=== PATIENT | female | born 1935 | race Caucasian/White ===

== ENCOUNTER 2016-03-18 00:01 | Inpatient (IN) | payer OTHER, MEDICARE ==
[~2016-03-18] VITALS: Ht 157.5 cm; Wt 74.4 kg
[~2016-03-18 00:01] MED LIST: ANTIVERT 25 MG25 MG PO; ASPIR 8181 MG PO; BUFFERIN LOW DO81 MG PO; CALCIUM 600600 M1 PO; CARVEDILOL12.5 MG PO; COREG 25 MG TAB25 MG PO; COZAAR 25MG TAB25 MG PO; ECOTRIN81 MG PO; FUROSEMIDE20 M1 PO; JANUVIA 50MG50 MG PO; KLOR-CON M1010 ME1 PO; LISINOPRIL20 MG PO; LOPRESSOR 25MG25 MG PO; MAGNESIUM OXID400 MG PO; METFORMIN HCL500 M3 PO; MIRALAX17 GM PO; NEURONTIN100 MG PO; PRINIVIL 5MG5 MG PO; PRINIVIL10 MG PO; SENNA-TIME S 501 TAB PO; TESSALON PERLE100 MG PO; Transderm Nitro 10MG (0.4 MG/Hr) Patch TOP; XANAX 0.25MG0.25 MG PO; ZOCOR 40MG TAB40 MG PO; ZOFRAN ODT4 MG SL
--- NOTE | 2016-03-18 00:08 | ED CARDIAC/CP/PALPITATIONS ---
History of Present Illness General Chief Complaint: Chest Pain Stated Complaint: BIBA C/O CP Source: patient Exam Limitations: no limitations Vital Signs & Intake/Output Vital Signs & Intake/Output Vital Signs Date Time Temp Pulse Resp B/P Pulse O2 O2 Flow FiO2 Ox Delivery Rate 03/18 0249 97.1 73 18 122/68 100 Room Air 03/18 0132 70 16 158/78 98 Room Air 03/18 0030 68 16 176/80 99 Room Air 03/18 0026 81 18 201/88 03/18 0010 99 Room Air Room Air 03/18 0010 97.4 68 16 190/72 99 Room Air Allergies Coded Allergies: erythromycin base (Mild, RASH 03/18/16) Sulfa (Sulfonamide Antibiotics) (RASH 05/01/15) clopidogrel (From PLAVIX) (03/18/16) ciprofloxacin (From CIPRO) (SEVERE DIARRHEA 05/01/15) codeine (GI DISTRESS 05/01/15) meperidine (GI UPSET 05/01/15) Reconcile Medications Alprazolam (Xanax 0.25MG Tab) 0.25 MG TAB 0.25 MG PO TID PRN pain attacks Aspirin (Children's Aspirin) 81 MG TAB 2 TAB PO DAILY HEART Benzonatate (Tessalon Perle) 100 MG SGL 100 MG PO TID PRN COUGH Calcium Carbonate (Calcium 600) (Unknown Strength) TAB (Unknown Dose) PO DAILY SUPPLEMENT (Reported) Furosemide 20 MG TABLET 1 TAB PO DAILY FLUID (Reported) Gabapentin (Neurontin) 100 MG CAP 100 MG PO Q8 PRN ANXIETY Losartan (Cozaar) 25 MG TAB 25 MG PO DAILY HTN Magnesium Oxide (Unknown Strength) TAB (Unknown Dose) PO DAILY SUPPLEMENT ( Reported) Metformin Hydrochloride (Metformin HCl) 500 MG TAB 2 TAB PO BID DIABETES ( Reported) Metoprolol Tartrate (Lopressor) 25 MG TAB 0.5 TAB PO BID HEART (Reported) Polyethylene Glycol 3350 (Miralax) 17 GM PWD 17 GM PO DAILY STOOL SOFTENER mix with water, juice, soda, coffee or tea Potassium Chloride 10 MEQ CER 1 CAP PO DAILY SUPPLEMENT (Reported) SENNOSIDES/DOCUSATE SODIUM (Senna-Time S Tablet) 50 MG/8.6 MG TAB 1 TAB PO DAILY STOOL SOFTENER Simvastatin (Zocor 40MG Tab) 40 MG TABLET 1 TAB PO DAILY CHOLESTEROL ( Reported) Sitagliptin Phosphate (Januvia) 50 MG TAB 1 TAB PO DAILY DIABETES (Reported) [Transderm Nitro 10MG (0.4 MG/Hr) Patch] 0.4 MG TOP DAILY HEART USE DAILY FOR 12 HRS ONLY Triage Nurses Notes Reviewed? yes Onset: Gradual Duration: hour(s): Timing: recent history Nitro Today/Relief: 0.4 mg x 2, provided by EMS, mild relief Aspirin Today: 325 mg x 1, provided by EMS Associated Symptoms: chest pressure HPI: 81-year-old woman with a history of coronary artery disease and diabetes, status post CABG in 2013, presents with 6-7 out of 10 substernal chest pressure that began at approximately 8 PM. She called 911. She received nitroglycerin 2 as well as aspirin 324. Upon arrival to the emergency department, she states that her pain is a 4 out of 10. The pain does not radiate. It is not reproducible. She has no dizziness or shortness of breath or syncopal type symptoms. She is otherwise well. Past History Medical History Any Pertinent Medical History? 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 No Review of Systems Review of Systems Constitutional: Reports: no symptoms. EENTM: Reports: no symptoms. Respiratory: Reports: no symptoms. Cardiovascular: Reports: no symptoms. GI: Reports: no symptoms. Genitourinary: Reports: no symptoms. Musculoskeletal: Reports: no symptoms. Skin: Reports: no symptoms. Neurological/Psychological: Reports: no symptoms. Hematologic/Endocrine: Reports: no symptoms. Immunologic/Allergic: Reports: no symptoms. All Other Systems: Reviewed and Negative Physical Exam Physical Exam General Appearance: well developed/nourished, no apparent distress Head: atraumatic, normal appearance Eyes: Bilateral: normal appearance. Ears, Nose, Throat: normal pharynx, normal ENT inspection Neck: normal inspection, supple, full range of motion Respiratory: normal breath sounds, chest non-tender, no respiratory distress, quiet respiration, lungs clear Cardiovascular: regular rate/rhythm Gastrointestinal: normal bowel sounds, soft, non-tender, no organomegaly Back: normal inspection Extremities: normal inspection, normal capillary refill Neurologic/Psych: no motor/sensory deficits, awake, alert, oriented x 3 Skin: intact, normal color, warm/dry Core Measures ACS in differential dx? No Severe Sepsis Present: No Septic Shock Present: No Progress Differential Diagnosis: AMI, unstable angina Plan of Care: Orders Procedure Date/time Status Nothing by Mouth 03/18 B Active TROPONIN LEVEL 03/18 1200 Active EKG 03/18 1200 Active TROPONIN LEVEL 03/18 0600 Active EKG 03/18 0600 Active Pathway - chart 03/18 0402 Active House Staff 03/18 0402 Active Code Status 03/18 0402 Active Pathway - chart 03/18 0356 Active Intake & Output 03/18 0328 Active Patient Data 03/18 0306 Active Saline Lock 03/18 0232 Active Misc Message 03/18 0232 Active ED Holding Orders 03/18 0232 Active Vital Signs 03/18 0232 Active Code Status 03/18 0232 Complete ED Holding Orders 03/18 0231 Active Admit to inpatient 03/18 0231 Active TROPONIN LEVEL 03/18 0012 Complete PARTIAL THROMBOPLASTIN TIME 03/18 0012 Complete PROTHROMBIN TIME 03/18 0012 Complete COMPREHENSIVE METABOLIC PANEL 03/18 0012 Complete CBC WITHOUT DIFFERENTIAL 03/18 0012 Complete B-TYPE NATRIURETIC PEP (BNP) 03/18 0012 Complete EKG 03/18 0005 Active VTE Mechanical Prophylaxis 03/18 UNK Active ECHOCARDIOGRAM 03/18 UNK Active Current Medications Sig/Dalia Start time Last Medication Dose Stop Time Status Admin Aspirin 162 MG DAILY 03/18 1000 UNVr (Aspirin) Atorvastatin Calcium 40 MG DAILY 03/18 1000 UNVr (Lipitor) Calcium 600 MG DAILY 03/18 1000 UNVr (Calcium Carbonate 600 MG Tab) Furosemide 20 MG DAILY 03/18 1000 UNVr (Lasix) Losartan Potassium 25 MG DAILY 03/18 1000 UNVr (Cozaar) Metoprolol Tartrate 12.5 MG BID 03/18 1000 UNVr (Lopressor) Polyethylene Glycol 17 GM DAILY 03/18 1000 UNVr (Miralax) Gabapentin 100 MG Q8 03/18 06 UNVr (Neurontin) Heparin Sodium 5,000 UNIT Q8 03/18 06 UNVr (Porcine) Acetaminophen 650 MG Q6P PRN 03/18 399 UNVr (Tylenol) Alprazolam 0.25 MG TID PRN 03/18 399 UNVr (Xanax) 03/25 035 Morphine Sulfate 1 MG Q6P PRN 03/18 399 UNVr (Morphine) Nitroglycerin 0.4 MG Q 5 MINUTES X 3 DO.. 03/18 399 UNVr (Nitrostat) Laboratory Tests 03/18/16 0025: Anion Gap 12, Estimated GFR > 60, BUN/Creatinine Ratio 23.3, Glucose 137 H, Calcium 9.5, Total Bilirubin 0.6, AST 22, ALT 24, Alkaline Phosphatase 99, Troponin I < 0.01, Nrn-O-Pkesdbbwyfg Pept 366 H, Total Protein 6.9, Albumin 4.0 , Globulin 2.9, Albumin/Globulin Ratio 1.4, PT 11.0, INR 1.05, APTT 30, CBC w Diff NO MAN DIFF REQ, RBC 3.88 L, MCV 91.6, MCH 31.2 H, RDW 13.4, MPV 9.4, Gran % 61.5, Lymphocytes % 25.8, Monocytes % 10.5 H, Eosinophils % 1.7, Basophils % 0.5, Absolute Granulocytes 4.1, Absolute Lymphocytes 1.7, Absolute Monocytes 0.7 H, Absolute Eosinophils 0.1, Absolute Basophils 0, PUBS MCHC 34.1 Diagnostic Imaging: Viewed by Me: Radiology Read. Discussed w/RAD: Radiology Read. CXR Impression: no acute abnormality, no infiltrates, normal size heart, normal mediastinum Initial ED EKG: LBBB, NO ACUTE CHANGES Comments: PATIENT: RENEE BANDA PRESENT AGE: 81 PATIENT ACCOUNT NO: [id number] : 37 LOCATION: [facility] ORDERING PHYSICIAN: DAQUAN WELLS MD SERVICE DATE: 03/18/16 EXAM TYPE: RAD - XRY-PORTABLE CHEST XRAY EXAMINATION: XR PORTABLE CHEST CLINICAL INFORMATION: Chest pain COMPARISON: Multiple priors, most recently chest CT from 09/05/2015. TECHNIQUE: Portable AP view of the chest was obtained. FINDINGS: Median sternotomy wires appear intact. The lungs are well expanded. There is no focal consolidation, edema, or effusion. No pneumothorax. The cardiomediastinal silhouette is within normal limits. No acute osseous abnormality. IMPRESSION: No acute pulmonary findings. DICTATED BY: RENZO GLASER MD DATE/TIME DICTATED:03/18/16149 COMMUNITY DEVELOPMENT PLANNER:RAFI DATE/TIME TRANSCRIBED:03/18/16149 CONFIDENTIAL, DO NOT COPY WITHOUT APPROPRIATE AUTHORIZATION. <Electronically signed in Other Vendor System> SIGNED BY: RENZO GLASER MD 03/18 Departure Departure Disposition: STILL A PATIENT Condition: Stable Clinical Impression Primary Impression: Unstable angina Secondary Impressions: Hypertensive urgency Referrals: JARON MENDEZ MD Departure Forms: Customer Survey General Discharge Information Admission Note Spoke With: ANALISA BANERJEE PhD,JACQUELINE Prince Documentation of Exam: Documentation of any treatments & extenuating circumstances including Concerns Regarding Discharge (functional status, medication knowledge or non-compliance, living conditions, etc.) that warrant an admission rather than observation: Patient with significant cardiac history presenting with signs and symptoms were consistent with unstable angina. She also had hypertensive urgency requiring IV labetalol and topical nitrates. She merits admission to telemetry for medical optimization, monitoring for cardiac dysrhythmia, and evaluation by cardiology. Critical Care Note Critical Care Note Critical Care Time: 30-74 min Comments: Patient had equal blood pressures in both arms. She was given 20 of labetalol IV 1. As well as nitro paste 2 inches. Her blood pressure decreased to systolic of 158. Her chest pain was completely resolved.
[2016-03-18 00:36] LABS: ABSOLUTE BASOPHIL COUNT 0 /CUMM (0.0-0.2); ABSOLUTE EOSINOPHIL COUNT 0.1 /CUMM (0.0-0.7); ABSOLUTE GRANULOCYTE CT 4.1 /CUMM (1.4-6.5); ABSOLUTE LYMPH COUNT 1.7 /CUMM (1.2-3.4); ABSOLUTE MONOCYTE COUNT 0.7 /CUMM (0.10-0.60); BASOPHIL % 0.5 % (0.0-2.0); EOSINOPHIL % 1.7 % (0-5); GRANULOCYTE % 61.5 % (42.2-75.2); HEMATOCRIT 35.5 % (37-47); MEAN CORPUSCULAR HGB 31.2 PG (27.0-31.0); MEAN CORPUSCULAR HGB CONC 34.1 G/DL (33.0-37.0); MEAN CORPUSCULAR VOLUME 91.6 FL (81.0-99.0); MEAN PLATELET VOLUME 9.4 FL (7.4-10.4); PLATELET COUNT 171 /CUMM (130-400); RBC DISTRIBUTION WIDTH 13.4 % (11.5-14.5); RED BLOOD CELL CT 3.88 /CUMM (4.20-5.40); WHITE BLOOD CELL COUNT 6.7 /CUMM (4.8-10.8)
[2016-03-18 00:47] LABS: PTT 30 SEC (25-37)
--- NOTE | 2016-03-18 01:55 | RADIOLOGY REPORT ---
EXAMINATION: XR PORTABLE CHEST CLINICAL INFORMATION: Chest pain COMPARISON: Multiple priors, most recently chest CT from 09/05/2015. TECHNIQUE: Portable AP view of the chest was obtained. FINDINGS: Median sternotomy wires appear intact. The lungs are well expanded. There is no focal consolidation, edema, or effusion. No pneumothorax. The cardiomediastinal silhouette is within normal limits. No acute osseous abnormality. IMPRESSION: No acute pulmonary findings.
--- NOTE | 2016-03-18 02:28 | History & Physical ---
KENIA BANERJEE,[facility] 03/18/16 0228: General Information and HPI MD Statement: I have seen and personally examined RENEE BANDA and documented this H &P. The patient is a 81 year old F who presented with a patient stated chief complaint of Chest Pain Source of Information: patient, family, old records Exam Limitations: no limitations History of Present Illness: Patient is a 81-year-old lady with PMH of DM, CABG, CAD, status post stent placement (prior to 2011), hypertension, hyperlipidemia, myocardial infarction presented to the hospital with chest pain. Patient states that she recently visited her customs brokerage manager last week Dr. Hui who recommended that following episodes of chest tightness and pressure which have been occuring over the last few months, the that patient be started on nitroglycerin patch (.4mg Q12 hr). Patient states that over the last few months she has had transient episodes of chest tightness. Earlier on this evening on 03/17/2016, after the patient was done bringing groceries into her house she began to experience chest pain and discomfort. Patient states that pain was rated at an 8-9 out of 10. This pain was described as a "dull" and "heavy pain which radiated to her left shoulder and subsequently to her back. Patient states that this pain felt different compared to previous. She states that this episode of chest pain was coupled with prolonged eructation. She did not take any pain medications however given the prolonged duration of this episode decided to call the ambulance and come to the emergency department. She denies any fever, chills, nausea, vomiting. Allergies/Medications Allergies: Coded Allergies: erythromycin base (Mild, RASH 03/18/16) Sulfa (Sulfonamide Antibiotics) (RASH 05/01/15) clopidogrel (From PLAVIX) (03/18/16) ciprofloxacin (From CIPRO) (SEVERE DIARRHEA 05/01/15) codeine (GI DISTRESS 05/01/15) meperidine (GI UPSET 05/01/15) Compliance With Home Meds: GOOD Past History Travel History Traveled to [place] past 21 day No Medical History Neurological: NONE EENT: NONE Cardiovascular: CAD, CHF, hypertension, hyperlipidemia, myocardial infarction, PVD, CABG carotid disease Respiratory: NONE Gastrointestinal: NONE Hepatic: NONE Renal: UTI Musculoskeletal: NONE Psychiatric: NONE Endocrine: DM Blood Disorders: NONE Cancer(s): 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 Home Who Do You Live With? self Services at Home: None Primary Language: Serbian Smoking Status: Former Smoker ETOH Use: occasional use Functional Ability ADLs Independent: dressing, eating, toileting, bathing. Ambulation: independent IADLs Independent: shopping, housework, finances, food prep, telephone, transportation , medication admin. Review of Systems Review of Systems Constitutional: Denies: chills, diaphoresis, fever, malaise, weakness. Cardiovascular: Reports: chest pain. Denies: orthopena, palpitations, peripheral edema. Respiratory: Reports: cough. Denies: hemoptysis, orthopnea, short of breath, sputum production. GI: Reports: see HPI. Denies: abdominal pain, bloating, constipation, diarrhea, distention, bowel incontinence. Genitourinary: Denies: discharge, dysuria, frequency, hematuria. Musculoskeletal: Denies: back pain, gout, joint pain, joint swelling. Skin: Denies: cysts, change in skin color, change in hair/nails, dryness, erythema. Neurological/Psychological: Denies: ataxia, cognitive dysfunction, confusion. Exam & Diagnostic Data Last 24 Hrs of Vital Signs/I&O Vital Signs Date Time Temp Pulse Resp B/P Pulse O2 O2 Flow FiO2 Ox Delivery Rate 03/18 0249 97.1 73 18 122/68 100 Room Air 03/18 0132 70 16 158/78 98 Room Air 03/18 0030 68 16 176/80 99 Room Air 03/18 0026 81 18 201/88 03/18 0010 99 Room Air Room Air 03/18 0010 97.4 68 16 190/72 99 Room Air Intake & Output 03/18 0800 03/18 0000 03/17 1600 Intake Total Output Total Balance Patient 72.575 kg Weight Physical Exam General Appearance Alert, Oriented X3, Cooperative, No Acute Distress Lymphatic Axillary nl Cardiovascular Normal S1, Normal S2, Occasional Skipped Beats Lungs Clear to Auscultation Abdomen Normal Bowel Sounds, Soft, No Tenderness Neurological Strength at 5/5 X4 Ext Extremities No Edema, Normal Pulses Last 24 Hrs of Labs/Yunior: Laboratory Tests 03/18/16 0025: Anion Gap 12, Estimated GFR > 60, BUN/Creatinine Ratio 23.3, Glucose 137 H, Calcium 9.5, Total Bilirubin 0.6, AST 22, ALT 24, Alkaline Phosphatase 99, Troponin I < 0.01, Jut-T-Mbezscsjxou Pept 366 H, Total Protein 6.9, Albumin 4.0 , Globulin 2.9, Albumin/Globulin Ratio 1.4, PT 11.0, INR 1.05, APTT 30, CBC w Diff NO MAN DIFF REQ, RBC 3.88 L, MCV 91.6, MCH 31.2 H, RDW 13.4, MPV 9.4, Gran % 61.5, Lymphocytes % 25.8, Monocytes % 10.5 H, Eosinophils % 1.7, Basophils % 0.5, Absolute Granulocytes 4.1, Absolute Lymphocytes 1.7, Absolute Monocytes 0.7 H, Absolute Eosinophils 0.1, Absolute Basophils 0, PUBS MCHC 34.1 Diagnostic Data EKG Results Sinus Rhythm Rate 66 QTC 474 CXR Results PATIENT: RENEE BANDA PRESENT AGE: 81 PATIENT ACCOUNT NO: [id number] : 37 LOCATION: [facility] ORDERING PHYSICIAN: DAQUAN WELLS MD SERVICE DATE: 03/18/16 EXAM TYPE: RAD - XRY-PORTABLE CHEST XRAY EXAMINATION: XR PORTABLE CHEST CLINICAL INFORMATION: Chest pain COMPARISON: Multiple priors, most recently chest CT from 09/05/2015. TECHNIQUE: Portable AP view of the chest was obtained. FINDINGS: Median sternotomy wires appear intact. The lungs are well expanded. There is no focal consolidation, edema, or effusion. No pneumothorax. The cardiomediastinal silhouette is within normal limits. No acute osseous abnormality. IMPRESSION: No acute pulmonary findings. DICTATED BY: RENZO GLASER MD DATE/TIME DICTATED:03/18/16149 WIRE BORDER ASSEMBLER:RAFI DATE/TIME TRANSCRIBED:03/18/16149 CONFIDENTIAL, DO NOT COPY WITHOUT APPROPRIATE AUTHORIZATION. <Electronically signed in Other Vendor System> SIGNED BY: RENZO GLASER MD 03/18 Assessment/Plan Assessment: Patient is a 81-year-old lady with PMH of DM, CABG, CAD status post stent placement, hypertension, hyperlipidemia, myocardial infarction who presented to the hospital with chest pain. #Chest pain Likely due to worsening stable angina vs musculoskeletal. Rule out acute coronary syndrome with serial troponins and EKG. 6 AM and 12 PM on 03/18/2016. Initial set of troponins were unremarkable. Echocardiogram to assess ejection fraction and cardiac function. Cardiology consult in a.m. Continue daily aspirin 81 mg. Nitroglycerin paste .4 mg/hr every 12 hours. #Coronary artery disease with a history of CHF Lasix 20 mg daily. No signs of decompensation. Continue beta debby Monitor ins and outs. Daily weights Continue ARB, if pressures remain elevated, can consider increasing dose. Full lipid panel Continue statin therapy. Continue aspirin #History of diabetes Begin patient on sliding scale. Hemoglobin A1c for long-term glycemic control. If sugars remain uncontrolled consider endocrinology consult. #Diet Consistent carbohydrate #DVT prophylaxis Heparin 5000 every 8 #Code DNR/DNI As Ranked By This Provider Problem List: 1. Hypertension 2. Hyperlipidemia 3. Diabetes 4. Unstable angina Core Measures/Miscellaneous Acute Coronary Syndrome ACS Diagnosis: No Cerebrovascular Accident CVA/TIA Diagnosis: No Congestive Heart Failure CHF Diagnosis: No Venous Thromboembolism VTE Risk Factors: Age > 40 VTE Prophylaxis [facility] Inpt: [facility] prophylaxis d/t: No contraindications No VTE Pharm Prophylaxis d/t: No contraindications VTE Diagnosis: No VTE Type: NONE VTE Confirmed by (Test): NONE Severe Sepsis Severe Sepsis Present: No Septic Shock Septic Shock Present: No Miscellaneous Documentation Attending Case Discussed With: Dr Hui Primary Care Physician: UNKNOWN Patient sees these Specialists NA Level of Patient Care: Telemetry CASSI ROGEL 03/18/16 0241: General Information and HPI Allergies/Medications Home Med list Alprazolam (Xanax 0.25MG Tab) 0.25 MG TAB 0.25 MG PO TID PRN pain attacks Aspirin (Children's Aspirin) 81 MG TAB 2 TAB PO DAILY HEART Benzonatate (Tessalon Perle) 100 MG SGL 100 MG PO TID PRN COUGH Calcium Carbonate (Calcium 600) (Unknown Strength) TAB (Unknown Dose) PO DAILY SUPPLEMENT (Reported) Furosemide 20 MG TABLET 1 TAB PO DAILY FLUID (Reported) Gabapentin (Neurontin) 100 MG CAP 100 MG PO Q8 PRN ANXIETY Losartan (Cozaar) 25 MG TAB 25 MG PO DAILY HTN Magnesium Oxide (Unknown Strength) TAB (Unknown Dose) PO DAILY SUPPLEMENT ( Reported) Metformin Hydrochloride (Metformin HCl) 500 MG TAB 2 TAB PO BID DIABETES ( Reported) Metoprolol Tartrate (Lopressor) 25 MG TAB 0.5 TAB PO BID HEART (Reported) Polyethylene Glycol 3350 (Miralax) 17 GM PWD 17 GM PO DAILY STOOL SOFTENER mix with water, juice, soda, coffee or tea Potassium Chloride 10 MEQ CER 1 CAP PO DAILY SUPPLEMENT (Reported) SENNOSIDES/DOCUSATE SODIUM (Senna-Time S Tablet) 50 MG/8.6 MG TAB 1 TAB PO DAILY STOOL SOFTENER Simvastatin (Zocor 40MG Tab) 40 MG TABLET 1 TAB PO DAILY CHOLESTEROL ( Reported) Sitagliptin Phosphate (Januvia) 50 MG TAB 1 TAB PO DAILY DIABETES (Reported) [Transderm Nitro 10MG (0.4 MG/Hr) Patch] 0.4 MG TOP DAILY HEART USE DAILY FOR 12 HRS ONLY Resident Review Statement Resident Statement: examined this patient, discussed with data analysis intern, agreed with data analysis intern, discussed with family, reviewed EMR data (avail), discussed with nursing , discussed with case mgmt, reviewed images, amended to note Other Findings: 80 years old woman presented at the emergency room reporting chest pain. Patient has a past medical history significant for congestive heart failure with reduced ejection fraction of 30-40% and golobal ischemic cardiomyopathy- hypokinesia (documented in echo 2014), severe CAD s/p x4 NE s/p stent placement( x3 in 2009 and 2011) and 5 CABG in 2014. She was admitted at [facility] in December 2015 for Legionella pneumonia and was seen by Dr. Hui by that time. Cardiac catheterization was done in January 2016 which showed complete occlusion of one vessel and nearly occlusion of another one. Patient reports for the past several months she has been experiencing intermittent episodes of chest tightness, midsternal, nonpleuritic nonreproducible, lasting less than 5 minutes, without radiation and resolved by itself. Patient follow-up with Dr. Hui last week and was restarted on nitrate patch 0.4mg q24h. She denies any other cardiac or noncardiac associated symptoms of palpitation, lightheadedness, dizziness, feeling clammy, cold sweats. Yesterday around 5 PM patient experienced a sudden onset, progressive, midsternal chest pain, pain is started as an mild and peaked at 8-9 out of 10 on pain, pain lasted more than 30 minutes. Patient denies any palpitation, lightheadedness, dizziness, feeling clammy and sweaty. She was given nitroglycerin in the ambulance and emergency room that relieved the pain. lives a she is retired lives alone, ambulates and is physically active, she is independent and takes care of herself. Social history: Former heavy smoker 3 packs a day for 20 years quit 39 years ago , does not drink or denies illicit drugs; vital signs: Within normal limits; ROS: Complains of mild retrosternal chest pain. Physical exam: HEET: Within normal limits; CV: Soft2/6 systolic ejection murmur (aortic valve), S1S2, lungs: Prolonged expiration no crackles no wheezing; trace peripheral pedal edema Pertinent Data: Echo form Dec 2014: Normal size left ventricle. Mild concentric left ventricular hypertrophy. Mildly hypokinetic proximal septum and markedly hypokinetic distal septum. Mildly hypokinetic proximal inferior wall and markedly hypokinetic distal inferior wall. Mild global hypokinesis of the other wall segments. Moderately abnormal left ventricular ejection fraction estimated at 30-35%. "pseudonormal" filling pattern of the left ventricle for age (stage 2 diastolic dysfunction) and mild RV elevated pressure. EKG: Sinus rhythm, 66 beats per minutes, old nonspecific STT segment change in septolateral(V2-V4) leads, >120msec QRS with an old left bundle branch block (no change compared to previous EKG) troponin less than 0.01, sodium 138 potassium 4.4 hemoglobin/hematocrit 12.1/ 35.5, platelet 171 Assessment and plan 81-year-old woman with extensive cardiac history was admitted for anginal chest pain. List of differential diagnosis for chest pain: Acid reflux disease, costochondritis, NSTEMI List of problems: HFrEF, diabetes, anxiety, neuropathic pain, hypertension, hyperlipidemia, chronic anemia and history of GI bleeding secondary to antiplatelet therapy, mild thrombocytopenia Plan #1 anginal chest pain -Admit to telemetry -Trend troponin at 6 AM and 12 noon with EKG -Obtain echo in the am -Cardiology consult- Dr. Ez BANERJEE was notified by ED physician -Continue aspirin 81 mg x 2 tab po daily -Nitroglycerin paste 1 inch every 6 -Continue her home medication: Simvastatin, metoprolol #2 congestive heart failure-not in decompensation -Heart healthy diet/diabetic diet -Daily weights -Continue metoprolol -Continue by mouth Lasix daily -Continue losartan #3 coronary artery disease -Continue simvastatin -Continue aspirin 81 mg 2 tabs by mouth daily #4 history of diabetes on metformin and Januvia -Hold oral hypoglycemic agents -Started patient on carbohydrate consistent diet -Insulin sliding scale pre-meals and at bedtime #5 history of chronic anemia and mild thrombocytopenia-stable DVT prophylaxis heparin 5000 units every 8 Mild pain pathway DNR/DNI
[2016-03-18 05:06] VITALS: BP 140/60
[2016-03-18 09:00] VITALS: BP 130/60
--- NOTE | 2016-03-18 11:08 | PN- Housestaff ---
Subjective Follow-up For: Chest pain Subjective: Seen and examined. She lying comfortably in bed in no acute distress. Days of chest pain, palpitation, dizziness complains of cough dry, denies any fever, chills, and no other complaints. Review of Systems Constitutional: Reports: see HPI. Objective Last 24 Hrs of Vital Signs/I&O Vital Signs Date Time Temp Pulse Resp B/P Pulse O2 O2 Flow FiO2 Ox Delivery Rate 03/18 955 97.8 67 16 180/64 03/18 0856 67 180/64 03/18 0800 97.8 67 16 130/60 96 Room Air 03/18 0506 97.9 65 18 140/60 95 Room Air 03/18 0249 97.1 73 18 122/68 100 Room Air 03/18 0132 70 16 158/78 98 Room Air 03/18 0030 68 16 176/80 99 Room Air 03/18 0026 81 18 201/88 03/18 0010 99 Room Air Room Air 03/18 0010 97.4 68 16 190/72 99 Room Air Intake & Output 03/18 1600 03/18 0800 03/18 0000 Intake Total 100 Output Total Balance 100 Intake, Oral 100 Patient 74.389 kg Weight Physical Exam General Appearance: same as documented in HPI Assessment/Plan Assessment: Patient is a 81-year-old lady with PMH of DM, CABG, CAD status post stent placement, hypertension, hyperlipidemia, myocardial infarction presented to the hospital with chest pain. Chest pain Likely due to stable angina Rule out acute coronary syndrome with serial troponin and EKG so far have been negative for any acute findings. Echocardiogram to assess ejection fraction and cardiac function. Cardiology consult in a.m. Continue daily aspirin 81 mg. Nitroglycerin paste 1 inch every 6 hours. Coronary artery disease with a history of CHF Lasix 20 mg daily. Continue beta debby Monitor ins and outs. Daily weights Continue ARB Continue statin therapy. Continue aspirin History of diabetes Begin patient on sliding scale. Hemoglobin A1c for long-term glycemic control. If sugars remain uncontrolled consider endocrinology consult. Diet Insistent carbohydrate DVT prophylaxis Heparin 5000 every 8 Code DNR/DNI Problem List: 1. Chest pain Pain Ratin Pain Location: None Pain Goal: Remain pain free Pain Plan: Mild pain pathway Tomorrow's Labs & Rationales: BEP for LYTES CBC FOR H&h
--- NOTE | 2016-03-18 13:44 | Cons- Cardiology ---
General Information and HPI Consulting Request Date of Consult: 03/18/16 Requested By: ANALISA BANERJEE PhD,JACQUELINE Prince History of Present Illness: Mita is a 81 year old female with history of hypertension, dyslipidemia, coronary artery disease s/p IL with two stents placed prior to 2011 and CABG. Yesterday, Mita noted a moderate precordial chest pressure that radiated to her left shoulder and back. The discomfort began at rest and had an equivocal exertional component to it. It was associated with nausea and eructation but there was no shortness of breath, lightheadedness or palpitations. The discomfort lasted over five hours without any rise in cardiac troponin. There were no new ischemic changes on her ECG. It is noted that this patient is hypertensive. At baseline this patient was doing well although she does note swelling in her feet toward the end of the day. There is no associated shortness of breath or orthopnea. She did stop her statin due to unbearable muscle achiness but she continues to have a discomfort in her fingers bilaterally in a median nerve distribution. Otherwise, at baseline, she is free of chest pain, pressure or tightness, lightheadedness or palpitations. It should be noted that this patient has been very anemic and is now s/p an upper endoscopy and colonoscopy that showed a gastritis and diverticulitis respectively. She feels better on antacid therapy. It should be recalled that Mita's carries a diagnosis of Legionella pneumonia treated with antibiotics, decompensated congestive heart failure and a NSTEMI. Her echocardiogram at that time showed a significant decrease in her EF and she did have positive cardiac enzymes. I did opt to pursue a cardiac catheterization which showed no flow in the distal OM1 and the interpositional segment of the LAD could not be seen. Mita has reported lightheadedness in the past and has fallen multiple times without any true syncope. The patient's echo shows an EF of 30-35% with mild left ventricular hypertrophy. The proximal septum is mildly hypokinetic and the distal septum and distal inferior wall is markedly hypokinetic. There is mild left atrial enllargement. In terms of cardiac valves she has mild mitral stenosis and regurgitation, mild tricuspid regurgitation, mild aortic stenosis, and moderate pulmonary hypertension. This patient has had two prior stents to her RCA and is s/p CABG x 5 done at [facility]. This procedure included a SAGE graft to the LAD with jump graft to the more distal LAD, an SVG to the OM1 and OM2 and an SVG to the RCA. Her recent cardiac catheterization shows a 20% ostial and 50% distal left main. The LAD has a 70% ostial to proximal and 50% long mid stenosis followed by a 70% distal lesion. The D1 and D2 have luminal irregularities. The LCX has diffuse luminal irregularities with a 70% proximal stenosis. The OM1 fills retrograde from the SVG with no flow to its distal segment. This is a small vessel. The OM2 has diffuse luminal irregularities with a 70% stenosis following the anastomosis. TheRCA is 100% occluded at the ostium but the SVG to the RCA is patent with good distal runoff. The SAGE to the LAD is patent but the interpositional segment could not be visualized and is presumed occluded. Distal to the anastomosis of the SAGE is a 70% stenosis. Finally, the SVG to the OM1 and OM2 is patent with no flow into the distal OM1. Her EF is 70% with suspected aortic insufficiency. Allergies/Medications Allergies: Coded Allergies: erythromycin base (Mild, RASH 03/18/16) Sulfa (Sulfonamide Antibiotics) (RASH 05/01/15) clopidogrel (From PLAVIX) (03/18/16) ciprofloxacin (From CIPRO) (SEVERE DIARRHEA 05/01/15) codeine (GI DISTRESS 05/01/15) meperidine (GI UPSET 05/01/15) Home Med List: Alprazolam (Xanax 0.25MG Tab) 0.25 MG TAB 0.25 MG PO TID PRN pain attacks Aspirin (Children's Aspirin) 81 MG TAB 2 TAB PO DAILY HEART Benzonatate (Tessalon Perle) 100 MG SGL 100 MG PO TID PRN COUGH Calcium Carbonate (Calcium 600) (Unknown Strength) TAB (Unknown Dose) PO DAILY SUPPLEMENT (Reported) Furosemide 20 MG TABLET 1 TAB PO DAILY FLUID (Reported) Gabapentin (Neurontin) 100 MG CAP 100 MG PO Q8 PRN ANXIETY Losartan (Cozaar) 25 MG TAB 25 MG PO DAILY HTN Magnesium Oxide (Unknown Strength) TAB (Unknown Dose) PO DAILY SUPPLEMENT ( Reported) Metformin Hydrochloride (Metformin HCl) 500 MG TAB 2 TAB PO BID DIABETES ( Reported) Metoprolol Tartrate (Lopressor) 25 MG TAB 0.5 TAB PO BID HEART (Reported) Polyethylene Glycol 3350 (Miralax) 17 GM PWD 17 GM PO DAILY STOOL SOFTENER mix with water, juice, soda, coffee or tea Potassium Chloride 10 MEQ CER 1 CAP PO DAILY SUPPLEMENT (Reported) SENNOSIDES/DOCUSATE SODIUM (Senna-Time S Tablet) 50 MG/8.6 MG TAB 1 TAB PO DAILY STOOL SOFTENER Simvastatin (Zocor 40MG Tab) 40 MG TABLET 1 TAB PO DAILY CHOLESTEROL ( Reported) Sitagliptin Phosphate (Januvia) 50 MG TAB 1 TAB PO DAILY DIABETES (Reported) [Transderm Nitro 10MG (0.4 MG/Hr) Patch] 0.4 MG TOP DAILY HEART USE DAILY FOR 12 HRS ONLY Review of Systems Review of Systems: A review of systems is remarkable for a cough. Past History Travel History Traveled to [place] past 21 day No Medical History Neurological: NONE EENT: NONE Cardiovascular: hypertension, hyperlipidemia, NSTEMI, PVD, CABG x 5 carotid disease Respiratory: pneumonia Gastrointestinal: NONE Hepatic: NONE Renal: UTI Musculoskeletal: NONE Psychiatric: NONE Endocrine: DM Blood Disorders: NONE Cancer(s): NONE REJECTOR/Reproductive: NONE Surgical History Surgical History: CABG Psychosocial History Where Do You Live? Home Who Do You Live With? self Services at Home: None Primary Language: [place] Smoking Status: Former Smoker ETOH Use: occasional use Functional Ability ADLs Independent: dressing, eating, toileting, bathing. Ambulation: independent IADLs Independent: shopping, housework, finances, food prep, telephone, transportation , medication admin. Exam & Diagnostic Data Vital Signs and I&O Vital Signs Date Time Temp Pulse Resp B/P Pulse O2 O2 Flow FiO2 Ox Delivery Rate 03/18 1559 98.4 66 18 166/60 96 03/18 1125 Room Air 03/18 0956 97.8 67 16 180/64 03/18 0956 67 180/64 03/18 0900 97.8 67 16 130/60 96 Room Air 03/18 0506 97.9 65 18 140/60 95 Room Air 03/18 0249 97.1 73 18 122/68 100 Room Air 03/18 0132 70 16 158/78 98 Room Air 03/18 0030 68 16 176/80 99 Room Air 03/18 0026 81 18 201/88 03/18 0010 99 Room Air Room Air 03/18 0010 97.4 68 16 190/72 99 Room Air Intake & Output 03/18 1600 03/18 0800 03/18 0000 03/17 1600 03/17 0800 03/17 0000 Intake Total 480 100 Output Total Balance 480 100 Intake, Oral 480 100 Patient 164 lb Weight Physical Exam: General: WD/ WN female in NAD; alert and oriented x 3 HEENT: NC/ AT, PERRL, EOMI, clear oropharynx Neck: no JVD, bilateral carotid bruits Heart: RRR with 2/6 systolic murmur at the LLSB and RUSB Lungs: clear bilaterally Abdomen: soft, NT, +ve bowel sounds Extemities: no edema Diagnostic Data EKG Results sinus rhythm with old anterior IL and LAFB Assessment/Plan Assessment/Plan * This patient has chest discomfort that may be musculoskeletal since she has had a recent cough. Nevertheless, her symptoms do go along with ischemia. Fortunately, if she does have ischemia it was not to the point of causing an IL. My recommendation is to pursue a pharmocologic stress test tomorrow to assess for ischemi. We will also obtain an echocardiogram to evaluate her EF. I do not seen any signs of decompensated CHF at this time. If ischemia is noted, we will need to determine if it is do to progression of her coronary artery disease or rather to subendocardial ischemia from severe hypertension. * Continue aspirin, her statin and Lasix. If recurrent chest pain we will begin Plavix and IV heparin. * Continue a NTG patch at 0.4mg/hr for 12 hours daily. Change metoprolol to Coreg 6.25mg BID for better control of her BP. Increase Losartan to 50mg daily. Consult Acknowledgment - Thank you for your consult request.
[2016-03-18 15:59] VITALS: BP 166/60
[2016-03-19 00:08] VITALS: BP 140/60
--- NOTE | 2016-03-19 07:27 | PN- Housestaff ---
Subjective Follow-up For: Chest pain Tele-Events Since Last Visit: Off the monitor Review of Systems Constitutional: Denies: chills, fever. Cardiovascular: Denies: chest pain, palpitations. Respiratory: Denies: cough, short of breath, sputum production. Gastrointestinal: Denies: abdominal pain, constipation, diarrhea, nausea, vomiting. Genitourinary: Denies: dysuria, frequency. Objective Last 24 Hrs of Vital Signs/I&O Vital Signs Date Time Temp Pulse Resp B/P Pulse O2 O2 Flow FiO2 Ox Delivery Rate 03/19 0818 98.2 59 16 155/62 96 Room Air 03/19 0008 98.2 66 20 140/60 94 03/18 2136 66 166/60 03/18 1559 98.4 66 18 166/60 96 03/18 1125 Room Air Intake & Output 03/19 1600 03/19 0800 03/19 0000 Intake Total 100 780 Output Total Balance 100 780 Intake, Oral 100 780 Physical Exam General Appearance: Alert, Oriented X3, Cooperative, No Acute Distress Cardiovascular: Regular Rate, Normal S1, Normal S2, No Murmurs Lungs: Clear to Auscultation, Normal Air Movement Abdomen: Normal Bowel Sounds, Soft, No Tenderness Extremities: No Clubbing, No Cyanosis, No Edema Assessment/Plan Assessment: Patient is a 81-year-old lady with PMH of DM, CABG, CAD status post stent placement, hypertension, hyperlipidemia, myocardial infarction presented to the hospital with chest pain. Chest pain Likely due to stable angina Rule out acute coronary syndrome with serial troponin and EKG so far have been negative for any acute findings. Echocardiogram to assess ejection fraction and cardiac function. Cardiology consult in a.m. Continue daily aspirin 81 mg. Nitroglycerin paste 1 inch every 6 hours. Coronary artery disease with a history of CHF Lasix 20 mg daily. Continue beta debby Monitor ins and outs. Daily weights Continue ARB Continue statin therapy. Continue aspirin History of diabetes Begin patient on sliding scale. Hemoglobin A1c for long-term glycemic control. If sugars remain uncontrolled consider endocrinology consult. Diet Insistent carbohydrate DVT prophylaxis Heparin 5000 every 8 Code DNR/DNI Problem List: 1. Chest pain Pain Ratin Pain Location: None Pain Goal: Remain pain free Pain Plan: Mild pain pathway Nitroglycerin patch Tomorrow's Labs & Rationales: CBC BEP
[2016-03-19 08:12] LABS: ABSOLUTE BASOPHIL COUNT 0 /CUMM (0.0-0.2); ABSOLUTE EOSINOPHIL COUNT 0.1 /CUMM (0.0-0.7); ABSOLUTE GRANULOCYTE CT 3.6 /CUMM (1.4-6.5); ABSOLUTE LYMPH COUNT 1.4 /CUMM (1.2-3.4); ABSOLUTE MONOCYTE COUNT 0.5 /CUMM (0.10-0.60); BASOPHIL % 0.6 % (0.0-2.0); EOSINOPHIL % 1.9 % (0-5); GRANULOCYTE % 63.2 % (42.2-75.2); HEMATOCRIT 33.4 % (37-47); MEAN CORPUSCULAR HGB 31.5 PG (27.0-31.0); MEAN CORPUSCULAR HGB CONC 34.2 G/DL (33.0-37.0); MEAN CORPUSCULAR VOLUME 92.3 FL (81.0-99.0); PLATELET COUNT 157 /CUMM (130-400); RBC DISTRIBUTION WIDTH 13.5 % (11.5-14.5); RED BLOOD CELL CT 3.62 /CUMM (4.20-5.40); WHITE BLOOD CELL COUNT 5.7 /CUMM (4.8-10.8)
--- NOTE | 2016-03-19 08:17 | ECHOCARDIOGRAM REPORT ---
RENEE BANDA Age: 81 : 1935 Gender: F Exam Date: 03/18/2016 08:58 Exam Location: 1 [address] Ht (in): 62 Wt (lb): 160 BSA: 1.81 BP: 140 / 60 Ordering Physician: CASSI ROGEL MD Referring Physician: CASSI ROGEL MD Technologist: Bassam Kingsley [facility] Room Number: 180-1 Indications: Chest Pain Rhythm: Sinus Technical Quality: good FINDINGS Left Ventricle Normal left ventricular size with mild left ventricular hypertrophy. Normal systolic function with no obvious regional wall motion abnormalities. Normal left ventricular diastolic filling pattern for age. The ejection fraction is visually estimated at 60%. Right Ventricle The right ventricle is mildly enlarged with normal function. Right Atrium The right atrium is normal in size. Left Atrium The left atrium mildly enlarged size. The interatrial septum is intact. Mitral Valve The mitral valve demonstrates mild to moderate annular calcification with mild stenosis. There is mild mitral regurgitation. Aortic Valve Structurally normal aortic valve without significant sclerosis or stenosis. There is trace aortic regurgitation. Tricuspid Valve The tricuspid valve is normal in structure and function. There is trace to mild tricuspid regurgitation. Pulmonary artery systolic pressure is moderately elevated to 55mmHg. Pulmonic Valve Structurally normal pulmonic valve. There is no pulmonic regurgitation. Pericardium Normal pericardium without effusion. No pleural effusion. Great Vessels Normal aortic root dimension. The aortic arch and great vessels are well seen and are normal. CONCLUSIONS 1. Normal EF of 60%. 2. Mild left ventricular hypertrophy. 3. Mild left atrial enlargment. 4. Mild mitral stenosis and mild mitral regurgitation. 5. Trace to mild tricuspid regurgitation. 6. Trace aortic regurgitation. 7. Moderate pulmonary hypertension. Clayton Hui M.D. (Electronically Signed) Final Date: 19 March 2016 08:16 MEASUREMENTS (Male / Female) Normal Values 2D ECHO LV Diastolic Diameter PLAX 4.5 cm 4.2 - 5.9 / 3.9 - 5.3 cm LV Systolic Diameter PLAX 3.1 cm 2.1 - 4.0 cm LV Fractional Shortening PLAX 31.1 % 25 - 46 % LV Ejection Fraction 2D Teich 59.0 % IVS Diastolic Thickness 1.1 cm LVPW Diastolic Thickness 1.2 cm LV Relative Wall Thickness 0.5 RV Internal Dim ED PLAX 3.4 cm 1.9 - 3.8 cm LVOT Diameter 1.7 cm Aortic Root Diameter 2.4 cm LA Systolic Diameter LX 3.8 cm 3.0 - 4.0 / 2.7 - 3.8 cm Ascending Aorta Diameter 2.7 cm DOPPLER AV Peak Velocity 229.0 cm/s AV Peak Gradient 21.0 mmHg AV Mean Velocity 173.0 cm/s AV Mean Gradient 14.0 mmHg AV Velocity Time Integral 63.0 cm LVOT Peak Velocity 99.2 cm/s LVOT Peak Gradient 3.9 mmHg LVOT Mean Velocity 67.3 cm/s LVOT Mean Gradient 2.0 mmHg LVOT Velocity Time Integral 27.8 cm LVOT Stroke Volume 63.1 cm AV Area Cont Eq vti 1.0 cm AV Area Cont Eq pk 1.0 cm MV Peak Velocity 205.0 cm/s MV Peak Gradient 16.8 mmHg MV Mean Velocity 122.0 cm/s MV Mean Gradient 7.0 mmHg Mitral E Point Velocity 190.0 cm/s Mitral A Point Velocity 168.0 cm/s Mitral E to A Ratio 1.1 MV PHT Velocity 215.0 cm/s MV Deceleration [place] 851.0 cm/s MV Pressure Half Time 75.8 ms MV Area PHT 2.9 cm MV Deceleration Time 232.0 ms TR Peak Velocity 354.0 cm/s TR Peak Gradient 50.1 mmHg Right Atrial Pressure 5.0 mmHg Pulmonary Artery Systolic Pressu 55.1 mmHg Right Ventricular Systolic Press 55.1 mmHg PV Peak Velocity 145.0 cm/s PV Peak Gradient 8.4 mmHg PV Mean Velocity 96.1 cm/s PV Mean Gradient 4.0 mmHg PV Velocity Time Integral 32.8 cm LV E' Lateral Velocity 8.4 cm/s Mitral E to LV E' Lateral Ratio 22.7 LV E' Septal Velocity 4.3 cm/s Mitral E to LV E' Septal Ratio 44.3
[2016-03-19 08:18] VITALS: BP 155/62
--- NOTE | 2016-03-19 08:26 | Patient Discharge Instructions ---
Discharge Instructions General Discharge Information You were seen/treated for: Chest pain Coronary artery disease with a history of CHF Diabetes mellitus Special Instructions: Please follow up with primary care physician in one week, follow up with in one week. Diet Continue normal diet: Yes Recommended Diet: Heart Healthy Activity Activity Self Limited: Yes Acute Coronary Syndrome Inclusion Criteria At DC or during hospital stay patient has or had the following: ACS DIAGNOSIS No Discharge Core Measures Meds if any: Prescribed or Continued at Discharge Meds if any: NOT Prescribed or Continued at Discharge Congestive Heart Failure Inclusion Criteria At DC or during hospital stay patient has or had the following: CHF DIAGNOSIS No Discharge Core Measures Meds if any: Prescribed or Continued at Discharge Meds if any: NOT Prescribed or Continued at Discharge Cerebrovascular accident Inclusion Criteria At DC or during hospital stay patient has or had the following: CVA/TIA Diagnosis No Discharge Core Measures Meds if any: Prescribed or Continued at Discharge Meds if any: NOT Prescribed or Continued at Discharge Venous thromboembolism Inclusion Criteria VTE Diagnosis No VTE Type NONE VTE Confirmed by (Test) NONE Discharge Core Measures - Per Current guidelines, there needs to be overlap - treatment for the first 5 days of Warfarin therapy. - If discharged on Warfarin prior to 5 days of - overlap therapy, the patient will need to be - assessed for post discharge needs including - *Post discharge parental anticoagulation - *Warfarin and/or parental anticoagulation education - *Follow up date to check INR post discharge At least 5 days overlap therapy as Inpatient No Meds if any: Prescribed or Continued at Discharge Note: Overlap Therapy is Warfarin and Anticoagulant Meds if any: NOT Prescribed or Continued at Discharge
--- NOTE | 2016-03-19 10:39 | PN- Cardiology ---
Subjective Subjective: * No chest discomfort or shortness of breath. * sinus rhythm Objective Vital Signs and I&Os Vital Signs Date Time Temp Pulse Resp B/P Pulse O2 O2 Flow FiO2 Ox Delivery Rate 03/19 817 98.2 59 16 155/62 96 Room Air 03/19 0008 98.2 66 20 140/60 94 03/18 2136 66 166/60 03/18 1559 98.4 66 18 166/60 96 03/18 1125 Room Air Intake & Output 03/19 0000 03/18 1600 03/18 0000 Intake Total 100 780 480 100 Output Total Balance 100 780 480 100 Intake, Oral 100 780 480 100 Patient 164 lb Weight Physical Exam: General: WD/ WN female in NAD; alert and oriented x 3 Neck: no JVD, bilateral carotid bruits Heart: RRR with 2/6 systolic murmur at the LLSB and RUSB Lungs: clear bilaterally Extemities: no edema Assessment/Plan Assessment/Plan * This patient remains hypertensive. We will increase her Losartan to 50mg BID. Continue Coreg 6.25mg BID * A pharmocologic stress test is pending. Continue telemetry? Yes
--- NOTE | 2016-03-19 13:29 | IV DIPYRIDAMOLE NUCLEAR STRESS ---
Clinical Diagnosis: HTN, Coronary Artery Disease Referring Physician: Clayton Hui M.D. Heel Nail Rasper: Tha Davies Date of Service: 03/19/2016 IV DIPYRIDAMOLE INFUSED: 40 mg IV AMINOPHYLLINE INFUSED: 0 mg PATIENT WEIGHT: 163 lbs INTERPRETATION: The patient's baseline EKG showed sinus rhythm with old anterior myocardial infarction and left anterior fascicular block at 71 BPM. Baseline B/P 162/90. The patient received 40 mg of dipyridamole infused intravenously over a 4 minute period. TC-99M or Myoview was injected after dipyridamole infusion. The patient complained of headache and fullness in chest. There were no EKG changes seen following pharmacologic infusion. Arrhythmias: None IMPRESSION: The test was supervised by the interpreting Knitter Hand, who was in attendance during the entire test. No EKG evidence of stress induced myocardial ischemia. See separately dictated Nuclear Report.
[2016-03-19 16:18] VITALS: BP 182/82
--- NOTE | 2016-03-19 16:23 | NUCLEAR MEDICINE REPORT ---
PERSANTINE STRESS AND RESTING SPECT MYOCARDIAL PERFUSION IMAGING STUDY WITH GATED SPECT IMAGES: CLINICAL INDICATION: Hypertension, hyperlipidemia, coronary artery disease, myocardial infarction status post stent 2012. PROCEDURE: Regional myocardial perfusion was assessed using a 1 day protocol. Stress images were obtained on 03/19/2016 following the intravenous administration of 18.5 mCi Tc 99m Myoview. Stress consisted of 40 mg Persantine given intravenously. Following the sestamibi injection no aminophylline was given intravenously. Rest images were obtained 03/19/2016 following the intravenous administration of 30.4 mCi Technetium 99m Myoview. Single photon emission tomographic (SPECT) images were obtained. SPECT images were acquired in a 64 x 64 matrix of 64 projections over 180 degrees. These were reconstructed into standard short axis, horizontal and vertical long axis cardiac projections. FINDINGS: The post stress images show the left ventricular chamber to be normal in size. There is a small region of mildly decreased activity present in the mid lateral wall, likely involving small segments of the adjacent mid anterolateral and mid inferolateral segments. There is also somewhat prominent decreased activity at the apex, but this is not definitely outside the limits of normal and could represent prominent apical thinning. Activity in the other hernandes appears normal. The rest images show improvement in activity in the lateral wall compared to the post stress images although minimally decreased activity in this wall persists on the rest images. There is a small region of decreased activity present at the apex, but this change may not be significant. The activity in the other hernandes is unchanged to the post-rest images and appears normal. In addition to the subtle changes in perfusion compared to the post stress images, the left ventricular chamber size on the stress images, although within normal limits, appears significantly larger than on the rest images. The images were obtained using a gated SPECT technique, which permits visualization of wall motion and calculation of the left ventricular ejection fraction. The left ventricular chamber is normal in size. No left ventricular wall motion abnormalities are present. The calculated left ventricular ejection fraction is 52% on the stress study. No previous study is available for comparison. IMPRESSION: A small mild region of reversible ischemia in the mid lateral wall is noted as described above. No other perfusion abnormalities are noted. The left ventricular chamber appears significantly larger, although still within normal limits, on the stress images compared to the rest images, suggesting stress related transient ischemic dilatation. Left ventricular wall motion and ejection fraction are normal.
[2016-03-19 18:57] VITALS: BP 152/52
[2016-03-19 23:39] VITALS: BP 176/80
[2016-03-20 07:53] VITALS: BP 120/70
--- NOTE | 2016-03-20 07:56 | PN- Housestaff ---
Subjective Follow-up For: Chest pain Hypertension Complaints: no complaints Subjective: Patient seen and examined. She is lying in the bed comfortable with no acute distress. She denies chest pain, palpitation, she report mild headache and feeling dizzy when she turned in the bed. No N/V and no change in the urinary or bowel habits. Vitals remains stable overnight. Review of Systems Constitutional: Reports: no symptoms. EENTM: Reports: no symptoms. Cardiovascular: Reports: no symptoms. Respiratory: Reports: no symptoms. Gastrointestinal: Reports: no symptoms. Genitourinary: Reports: no symptoms. Objective Last 24 Hrs of Vital Signs/I&O Vital Signs Date Time Temp Pulse Resp B/P Pulse O2 O2 Flow FiO2 Ox Delivery Rate 03/20 0859 120/70 03/20 0858 120/70 03/20 0858 120/70 03/20 0753 98.4 96 20 120/70 96 03/19 2339 97.9 72 20 176/80 96 Room Air 03/19 2110 80 172/64 03/19 2109 80 172/64 03/19 2108 80 172/64 03/19 1857 152/52 03/19 1618 97.6 68 18 182/82 96 Room Air 03/19 1153 59 155/62 03/19 1153 59 155/62 Intake & Output 03/20 1600 03/20 0800 03/20 0000 Intake Total 240 160 Output Total Balance 240 160 Intake, Oral 240 160 Physical Exam General Appearance: Alert, Oriented X3, Cooperative, No Acute Distress Skin: No Rashes, No Breakdown, No Significant Lesion HEENT: Atraumatic, PERRLA, EOMI, Mucous Membr. moist/pink Cardiovascular: Normal S1, Normal S2, Systolic murmur Lungs: Clear to Auscultation, Normal Air Movement Abdomen: Normal Bowel Sounds, Soft, No Tenderness Extremities: No Edema, Normal Pulses Vascular: Normal Pulses, Pulses Symmetrical Current Medications: Current Medications Sig/Dalia Start time Last Medication Dose Route Stop Time Status Admin Acetaminophen 650 MG Q6P PRN 03/180 AC PO Alprazolam 0.25 MG TIDPRN PRN 03/180 AC PO 03/25 0359 Aspirin 162 MG DAILY 03/18 1000 AC 03/20 PO 0857 Atorvastatin Calcium 40 MG DAILY 03/18 999 AC PO Calcium 600 MG DAILY 03/18 999 AC PO Carvedilol 6.25 MG BID 03/18 2200 AC 03/20 PO 0858 Furosemide 20 MG DAILY 03/18 1000 AC 03/20 PO 0859 Gabapentin 100 MG Q8 03/18 0600 AC PO Heparin Sodium 5,000 UNIT Q8 03/18 0600 AC 03/20 (Porcine) SC 0648 Insulin Aspart 0 TIDAC 03/18 0800 AC 03/19 SC 1655 Losartan Potassium 50 MG BID 03/19 2200 AC 03/20 PO 0858 Losartan Potassium 50 MG DAILY 03/19 1000 DC 03/19 PO 1153 Morphine Sulfate 1 MG Q6P PRN 03/18 0400 AC IV Nifedipine 30 MG DAILY 03/19 1742 AC 03/20 PO 0859 Nifedipine 30 MG DAILY 03/19 1741 DC PO Nitroglycerin 0.4 MG DAILY@1830 03/20 1830 AC TOP Nitroglycerin 0.4 MG DAILY 03/19 1757 DC 03/19 TOP 1837 Nitroglycerin 0.4 MG AT BEDTIME 03/18 2200 DC 03/18 TOP 2136 Nitroglycerin 0.4 MG Q 5 MINUTES X 3 DO.. 03/18 0400 SL Patient Medication 1 UNIT ONE NR 03/19 1800 ME Teaching ED 03/19 1830 Polyethylene Glycol 17 GM DAILY 03/18 1000 AC 03/19 PO 1154 Sodium Chloride 2 SPRAY Q4 03/18 1000 AC 03/20 KARMA 0900 Last 24 Hrs of Lab/Yunior Results Last 24 Hrs of Labs/Mics: Laboratory Tests 03/20/16 0600: Anion Gap 9, Estimated GFR > 60, BUN/Creatinine Ratio 20.0, Glucose 156 H, Calcium 9.1, Magnesium 1.8, Total Bilirubin 0.6, AST 15, ALT 25, Alkaline Phosphatase 80, Total Protein 6.5, Albumin 3.5, Globulin 3.0, Albumin/Globulin Ratio 1.2, CBC w Diff NO MAN DIFF REQ, RBC 3.69 L, MCV 92.8, MCH 31.8 H, RDW 13.5, MPV 10.3, Gran % 63.8, Lymphocytes % 25.2, Monocytes % 8.7, Eosinophils % 1.7, Basophils % 0.6, Absolute Granulocytes 3.9, Absolute Lymphocytes 1.5, Absolute Monocytes 0.5, Absolute Eosinophils 0.1, Absolute Basophils 0, PUBS MCHC 34.3 Assessment/Plan Assessment: Patient is a 81-year-old lady with PMH of DM, CABG, CAD status post stent placement, hypertension, hyperlipidemia, myocardial infarction presented to the hospital with chest pain. Chest pain Likely due to stable angina Rule out acute coronary syndrome with serial troponin and EKG so far have been negative for any acute findings. Echocardiogram to assess ejection fraction and cardiac function. Cardiology consult in a.m. Continue daily aspirin 81 mg. Nitroglycerin paste 1 inch every 6 hours. Hypertension Case was discussed with yesterday, her BP yesterday was elevated up to 182/82. We started Nifedipine 30mg daily. Her BP pressure today is nicely controlled. If remain stable will discharge patient today, she will f/u as outpatient with . Coronary artery disease with a history of CHF Lasix 20 mg daily. Continue beta debby Monitor ins and outs. Daily weights Continue ARB Continue statin therapy. Continue aspirin History of diabetes Begin patient on sliding scale. Hemoglobin A1c for long-term glycemic control. If sugars remain uncontrolled consider endocrinology consult. Diet Insistent carbohydrate DVT prophylaxis Heparin 5000 every 8 Code DNR/DNI Problem List: 1. Chest pain 2. Hypertensive urgency Pain Ratin Pain Location: - Pain Goal: Remain pain free Pain Plan: - Tomorrow's Labs & Rationales: -
[2016-03-20 08:34] LABS: ABSOLUTE BASOPHIL COUNT 0 /CUMM (0.0-0.2); ABSOLUTE EOSINOPHIL COUNT 0.1 /CUMM (0.0-0.7); ABSOLUTE GRANULOCYTE CT 3.9 /CUMM (1.4-6.5); ABSOLUTE LYMPH COUNT 1.5 /CUMM (1.2-3.4); ABSOLUTE MONOCYTE COUNT 0.5 /CUMM (0.10-0.60); BASOPHIL % 0.6 % (0.0-2.0); EOSINOPHIL % 1.7 % (0-5); GRANULOCYTE % 63.8 % (42.2-75.2); HEMATOCRIT 34.2 % (37-47); MEAN CORPUSCULAR HGB 31.8 PG (27.0-31.0); MEAN CORPUSCULAR HGB CONC 34.3 G/DL (33.0-37.0); MEAN CORPUSCULAR VOLUME 92.8 FL (81.0-99.0); MEAN PLATELET VOLUME 10.3 FL (7.4-10.4); PLATELET COUNT 172 /CUMM (130-400); RBC DISTRIBUTION WIDTH 13.5 % (11.5-14.5); RED BLOOD CELL CT 3.69 /CUMM (4.20-5.40); WHITE BLOOD CELL COUNT 6.1 /CUMM (4.8-10.8)
[2016-03-20 08:59] VITALS: BP 120/70
[2016-03-20] MEDS ORDERED: PREDNISONE5 M1 PO (09:17)
[2016-03-20] MEDS ORDERED: REPATHA SU140 MG/1 M SC (09:19)
[2016-03-20] MEDS ORDERED: LEVSIN-SL0.125 MG (09:19)
[2016-03-20] MEDS ORDERED: NIFEDIPINE ER30 M2 PO (09:22)
--- NOTE | 2016-03-20 10:59 | PN- Cardiology ---
Subjective Subjective: Doing better. No further chest pain. No shortness of breath. No palpitations. No diaphoresis. Objective Vital Signs and I&Os Vital Signs Date Time Temp Pulse Resp B/P Pulse O2 O2 Flow FiO2 Ox Delivery Rate 03/20 0859 120/70 03/20 0858 120/70 03/20 0858 120/70 03/20 0753 98.4 96 20 120/70 96 03/19 2339 97.9 72 20 176/80 96 Room Air 03/19 2110 80 172/64 03/19 2109 80 172/64 03/19 2108 80 172/64 03/19 1857 152/52 03/19 1618 97.6 68 18 182/82 96 Room Air 03/19 1153 59 155/62 03/19 1153 59 155/62 Intake & Output 03/20 1600 03/20 0800 03/20 0000 03/19 1600 03/19 0800 03/19 0000 Intake Total 240 160 240 100 780 Output Total Balance 240 160 240 100 780 Intake, Oral 240 160 240 100 780 Physical Exam: Gen: NAD HEENT: normal Lungs: clear to auscultation, normal resp. effort Heart: RRR, S1, S2, 2/6 systolic murmur Abdomen: Soft, nontender, no masses Extremities: No clubbing, cyanosis, or edema. Neuro: Alert and oriented x 3, cranial nerves intact Current Medications: Current Medications Sig/Dalia Start time Last Medication Dose Route Stop Time Status Admin Acetaminophen 650 MG Q6P PRN 03/18 0400 AC PO Alprazolam 0.25 MG TIDPRN PRN 03/18 0400 AC PO 03/25 0359 Aspirin 162 MG DAILY 03/18 999 AC 03/20 PO 0857 Atorvastatin Calcium 40 MG DAILY 03/18 999 AC PO Calcium 600 MG DAILY 03/18 999 AC PO Carvedilol 6.25 MG BID 03/18 2199 AC 03/20 PO 0858 Furosemide 20 MG DAILY 03/18 999 AC 03/20 PO 0859 Gabapentin 100 MG Q8 03/18 599 AC PO Heparin Sodium 5,000 UNIT Q8 03/18 599 AC 03/20 (Porcine) SC 0648 Insulin Aspart 0 TIDAC 03/18 799 AC 03/19 SC 1655 Losartan Potassium 50 MG BID 03/19 2199 AC 03/20 PO 0858 Losartan Potassium 50 MG DAILY 03/19 1000 DC 03/19 PO 1153 Morphine Sulfate 1 MG Q6P PRN 03/18 0400 AC IV Nifedipine 30 MG DAILY 03/19 1742 AC 03/20 PO 0859 Nifedipine 30 MG DAILY 03/19 1741 DC PO Nitroglycerin 0.4 MG DAILY@1830 03/20 1830 TOP Nitroglycerin 0.4 MG DAILY 03/19 1757 DC 03/19 TOP 1837 Nitroglycerin 0.4 MG AT BEDTIME 03/18 2200 DC 03/18 TOP 2136 Nitroglycerin 0.4 MG Q 5 MINUTES X 3 DO.. 03/18 0400 SL Patient Medication 1 UNIT ONE NR 03/19 1800 DC Teaching ED 03/19 183 Polyethylene Glycol 17 GM DAILY 03/18 1000 AC 03/19 PO 1154 Sodium Chloride 2 SPRAY Q4 03/18 1000 AC 03/20 KARMA 0900 Results Last 48 Hrs of Labs/Mics: Laboratory Tests 03/20/16 0600: Anion Gap 9, Estimated GFR > 60, BUN/Creatinine Ratio 20.0, Glucose 156 H, Calcium 9.1, Magnesium 1.8, Total Bilirubin 0.6, AST 15, ALT 25, Alkaline Phosphatase 80, Total Protein 6.5, Albumin 3.5, Globulin 3.0, Albumin/Globulin Ratio 1.2, CBC w Diff NO MAN DIFF REQ, RBC 3.69 L, MCV 92.8, MCH 31.8 H, RDW 13.5, MPV 10.3, Gran % 63.8, Lymphocytes % 25.2, Monocytes % 8.7, Eosinophils % 1.7, Basophils % 0.6, Absolute Granulocytes 3.9, Absolute Lymphocytes 1.5, Absolute Monocytes 0.5, Absolute Eosinophils 0.1, Absolute Basophils 0, PUBS MCHC 34.3 03/19/16 0625: Anion Gap 8, Estimated GFR > 60, BUN/Creatinine Ratio 20.0, Glucose 142 H, Calcium 9.0, Magnesium 1.8, Total Bilirubin 0.5, AST 18, ALT 28, Alkaline Phosphatase 62, Total Protein 6.4, Albumin 3.5, Globulin 2.9, Albumin/Globulin Ratio 1.2, CBC w Diff NO MAN DIFF REQ, RBC 3.62 L, MCV 92.3, MCH 31.5 H, RDW 13.5, MPV 10.0, Gran % 63.2, Lymphocytes % 25.2, Monocytes % 9.1, Eosinophils % 1.9, Basophils % 0.6, Absolute Granulocytes 3.6, Absolute Lymphocytes 1.4, Absolute Monocytes 0.5, Absolute Eosinophils 0.1, Absolute Basophils 0, PUBS MCHC 34.2 03/18/16 1245: Troponin I 0.02 Recent Imaging Studies: Exercise nuclear stress test: A small mild region of reversible ischemia in the mid lateral wall is noted as described above. No other perfusion abnormalities are noted. The left ventricular chamber appears significantly larger, although still within normal limits, on the stress images compared to the rest images, suggesting stress related transient ischemic dilatation. Left ventricular wall motion and ejection fraction are normal. Assessment/Plan Assessment/Plan Assessment: 1. CAD, status post CABG and stents 2. Chest pain, ruled out for Monocryl infarction 3. Mild lateral ischemia on nuclear stress test likely corresponding to known occlusion occlusion of distal OM1 4. Hypertension, now under control Plan: * Discharge to home. * Continue present medications. * Continue nitroglycerin patch. * Call with further chest pain. * Follow up with Dr. Hui in one week. Continue telemetry? Yes
[2016-03-20] MEDS ORDERED: COZAAR50 M1 PO (11:04)
[2016-03-20] MEDS ORDERED: COREG3.125 MG PO (11:09)
--- NOTE | 2016-03-30 09:04 | Discharge Summary ---
Visit Information Visit Dates Admission Date: 03/18/16 Discharge Date: 03/20/16 Hospital Course Course Attending Physician: ANALISA BANERJEE PhD,JACQUELINE Prince Primary Care Physician: UNKNOWN Hospital Course: This is a 80 years old woman presented at the emergency room reporting chest pain. 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 She was admitted at [facility] in December 2015 for Legionella pneumonia and was seen by Dr. Hui by that time. Cardiac catheterization was done in January 2016 which showed complete occlusion of one vessel and nearly occlusion of another one. Patient reported of experiencing intermittent episodes of chest tightness, midsternal, nonpleuritic nonreproducible, lasting less than 5 minutes, without radiation and self-resolving. She denied palpitation, lightheadedness, dizziness , feeling clammy, cold sweats. A day before admission around 5 PM she experienced a sudden onset, progressive, midsternal chest pain, pain is started as an mild and peaked at 8-9 out of 10 on pain, pain lasted more than 30 minutes. Patient denies any palpitation, lightheadedness, dizziness, feeling clammy and sweaty. She was given nitroglycerin in the ambulance and emergency room that relieved the pain. upon presentation vital signs WNL Physical exam: HEET: Within normal limits; CV: Soft2/6 systolic ejection murmur (aortic valve), S1S2, lungs: Prolonged expiration no crackles no wheezing; trace peripheral pedal edema EKG: Sinus rhythm, 66 beats per minutes, old nonspecific STT segment change in septolateral(V2-V4) leads, >120msec QRS with an old left bundle branch block (no change compared to previous EKG) troponin less than 0.01, sodium 138 potassium 4.4 hemoglobin/hematocrit 12.1/ 35.5, platelet 171 She was admitted to telemetry floor for chest pain, serial troponin and ekg trended which did not reveal any acute abnormalities. ,was continued on aspirin 81 mg Nitroglycerin,Simvastatin, metoprolol, losartan, a pharmacological stress test test was obtained which showed A small mild region of reversible ischemia in the mid lateral wall. No other perfusion abnormalities noted.The left ventricular chamber appears significantly larger, although still within normal limits, on the stress images compared to the rest images,suggesting stress related transient ischemic dilatation. Left ventricular wall motion and ejection fraction are normal. She was advised to follow up withj upon discharge and continue her home medications. Complications: none Allergies: Coded Allergies: erythromycin base (Mild, RASH 03/18/16) Sulfa (Sulfonamide Antibiotics) (RASH 05/01/15) clopidogrel (From PLAVIX) (03/18/16) ciprofloxacin (From CIPRO) (SEVERE DIARRHEA 05/01/15) codeine (GI DISTRESS 05/01/15) meperidine (GI UPSET 05/01/15) Significant Procedures: Exercise nuclear stress test: A small mild region of reversible ischemia in the mid lateral wall is noted as described above. No other perfusion abnormalities are noted. The left ventricular chamber appears significantly larger, although still within normal limits, on the stress images compared to the rest images, suggesting stress related transient ischemic dilatation. Left ventricular wall motion and ejection fraction are normal. Disposition Summary Disposition Principal Diagnosis: Chest pain CAD, status post CABG and stents Mild lateral ischemia on nuclear stress test likely corresponding to known occlusion. Additional Diagnosis: Hypertension Discharge Disposition: home or self care Discharge Instructions General Discharge Information Code Status: Full Code Patient's Diet: heart healthy Patient's Activity: as tolerated Follow-Up Instructions/Appts: please follow up with upon discharge. Medications at Discharge Discharge Medications: Stop taking the following medications: Metoprolol Tartrate (Lopressor) 25 MG TAB ORAL TWICE DAILY Qty = 90 Continue taking these medications: Furosemide (Furosemide) 20 MG TABLET 1 Tablet ORAL DAILY Comments: Last Taken: 03/20/16 Time: 9 AM Metformin Hydrochloride (Metformin HCl) 500 MG TAB 2 Tablet ORAL TWICE DAILY Qty = 180 Comments: NOT GIVEN Potassium Chloride (Potassium Chloride) 10 MEQ CER 1 Capsule ORAL DAILY Qty = 90 Comments: GIVEN 12/27/14 @ 0930 [Transderm Nitro 10MG (0.4 MG/Hr) Patch] 0.4 Milligram On the skin DAILY Qty = 30 Instructions: USE DAILY FOR 12 HRS ONLY Comments: Last Taken: 03/18/16 Time:1600 Aspirin (Children's Aspirin) 81 MG TAB 2 Tablet ORAL DAILY Qty = 30 Comments: GIVEN 12/30/14 @ 0900 Prednisone (Prednisone) 5 MG TABLET 5 Milligram ORAL DAILY Comments: NOT GIVEN AT HOSPITAL Evolocumab (Repatha Sureclick) 140 MG/ML PEN.INJCTR 140 Milligram Inject into fatty tissue TWICE/MONTH Comments: Last Taken: NOT GIVEN AT HOSPITAL Time: Hyoscyamine Sulfate (Levsin-Sl) 0.125 MG TAB.SUBL Unknown Dose as needed for NAUSEA Start taking the following new medications: Carvedilol (Coreg) 3.125 MG TABLET 6.25 Milligram ORAL TWICE DAILY Days = 60 No Refills Comments: Last Taken: 03/20/16 Time: 9 AM The following medications have been changed: Old: Losartan (Cozaar) 25 MG TAB 25 Milligram ORAL DAILY Qty = 30 New: Losartan Potassium (Cozaar) 50 MG TABLET 1 Tablet ORAL TWICE DAILY Qty = 30 Comments: Last Taken: 03/19/16 Time: 11:53 AM Copies To: ANALISA BANERJEE PhD,JACQUELINE Prince
== END 2016-03-20 14:00 | DRG 303 ==
LOC: ENRESERVDT → ENRESERVTM → ENRESERV → ERH 00:01 → 1NO 03:24 → ERHI 03:24 → ENPENDDIS 03:24 → 1NO 04:58
PROVIDERS: Pediatrics; Student in an Organized Health Care Education/Training Program; ADMIT Internal Medicine Interventional Cardiology
DX: I25.709 Atherosclerosis of coronary artery bypass graft(s), unspecified, with unspecified angina pectoris (principal); I11.0 Hypertensive heart disease with heart failure; I50.9 Heart failure, unspecified; E11.9 Type 2 diabetes mellitus without complications; Z79.84 Long term (current) use of oral hypoglycemic drugs; E78.5 Hyperlipidemia, unspecified; I25.2 Old myocardial infarction
CPT/HCPCS: 1NSP; 36415; 78452; 93005; 93010; 93016; 93017; 93306; 96374; A9502; J1245; J1644; J3490

== ENCOUNTER 2016-06-07 18:13 | Emergency (ER) | payer OTHER, MEDICARE ==
[~2016-06-07] VITALS: Ht 158.8 cm; Wt 74.8 kg
[~2016-06-07 18:13] MED LIST changes: +COREG3.125 MG PO; +COZAAR50 M1 PO; +LEVSIN-SL0.125 MG; +NIFEDIPINE ER30 M2 PO; +PREDNISONE5 M1 PO; +REPATHA SU140 MG/1 M SC
[2016-06-07] MEDS ORDERED: AMOX-CLAV 875-1 EACH PO (20:08)
[2016-06-07] MEDS ORDERED: ASPIRIN EC81 M1 PO (20:09)
[2016-06-07] MEDS ORDERED: NITROGLYCERIN1 EACH TOP (20:11)
[2016-06-07] MEDS ORDERED: CARVEDILOL6.25 M1 PO (20:11)
--- NOTE | 2016-06-07 20:24 | ED AMS/SEIZURE/WEAK/DIZZY ---
History of Present Illness General Chief Complaint: Dizziness Stated Complaint: DIZZINESS Source: patient Exam Limitations: no limitations Allergies Coded Allergies: erythromycin base (Mild, RASH 03/18/16) Sulfa (Sulfonamide Antibiotics) (RASH 05/01/15) clopidogrel (From PLAVIX) (03/18/16) ciprofloxacin (From CIPRO) (SEVERE DIARRHEA 05/01/15) codeine (GI DISTRESS 05/01/15) meperidine (GI UPSET 05/01/15) Triage Note: PT STATES SHE WENT IN TO [facility] IN LAST TUESDAY AND WENT TO HAVE IT REMOVED TODAY AND SHE TOLD THEM THAT SHE HAD VERTIGO WITH HX OF SAME. PT WAS THEN SENT TO ED. PT C/O NAUSEA STATES THIS IS THE 3RD DAY WITH IT. Triage Nurses Notes Reviewed? yes HPI: This patient is a 81-year-old female with past medical history including hypertension who presented to the emergency department today for evaluation of dizziness. The patient reported that she does have a history of vertigo. She reported that on Tuesday she started having a severe episode. She vomited bile multiple times with no blood in the vomitus. She had associated nausea at that time. She reported that since that time she has had intermittent episodes of dizziness, but no subsequent episodes of vomiting. The patient reported that she has had some indigestion and, "I don't know if it's my heart or not sometimes." The patient reported that she is still feeling dizzy currently intermittently. She reported that comes and goes on its own without any provoking or palliative factors. She denied any headaches, visual changes, chest pain, difficult breathing, or abdominal pain. (JUAN BROWN,SILVIA) Vital Signs & Intake/Output Vital Signs & Intake/Output Vital Signs Date Time Temp Pulse Resp B/P B/P Pulse O2 O2 Flow FiO2 Mean Ox Delivery Rate 06/078 68 16 132/68 100 Room Air 06/07 2028 96.1 62 18 180/78 98 Room Air 06/08 1999 Room Air 06/07 1817 97.6 65 16 188/80 95 Room Air ED Intake and Output 06/08 0000 06/07 1200 Intake Total 500 Output Total Balance 500 Intake, IV 500 Patient 165 lb Weight Weight Reported by Patient Measurement Method Reconcile Medications Amoxicillin/Clavulanate Potass (Amox-Clav 875-125 MG Tablet) 875 MG-125 MG TABLET 1 TAB PO BID ANTIBIOTIC (Reported) Aspirin (Ecotrin*) 81 MG TABLET.DR 1 TAB PO DAILY HEART/BLOOD (Reported) Carvedilol 6.25 MG TABLET 1 TAB PO BID HEART/BP (Reported) Evolocumab (Repatha Sureclick) 140 MG/ML PEN.INJCTR 140 MG SC TWICE/MONTH CHOLESTEROL (Reported) Furosemide 20 MG TABLET 1 TAB PO DAILY FLUID (Reported) Hyoscyamine Sulfate (Levsin-Sl) 0.125 MG TAB.SUBL (Unknown Dose) PRN NAUSEA ( Reported) Losartan Potassium (Cozaar) 50 MG TABLET 1 TAB PO BID HTN Metformin HCl 500 MG TABLET 2 TAB PO BID DM (Reported) Nitroglycerin (Nitroglycerin Patch) 0.4 MG/HOUR PATCH.TD24 1 PATCH TOP DAILY HEART (Reported) Ondansetron (Zofran Odt) 4 MG TAB.RAPDIS 1 TAB SL TID PRN NAUSEA Potassium Chloride (Klor-Con M10) 10 MEQ TAB.ER.PRT 1 TAB PO DAILY SUPPLEMENT (Reported) (PRISCILLA BANERJEE,DAQUAN Ko) Past History Travel History Traveled to [place] past 21 day No Medical History Any Pertinent Medical History? 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 No (SILVIA MARTINEZ PA-C) Review of Systems Review of Systems Constitutional: Reports: no symptoms. EENTM: Reports: no symptoms. Respiratory: Reports: no symptoms. Cardiovascular: Reports: no symptoms. GI: Reports: see HPI. Genitourinary: Reports: no symptoms. Musculoskeletal: Reports: no symptoms. Skin: Reports: no symptoms. Neurological/Psychological: Reports: see HPI. All Other Systems: Reviewed and Negative (JUAN BROWNSILVIA) Physical Exam Physical Exam General Appearance: well developed/nourished, no apparent distress, alert, awake Comments: Well-developed well-nourished person in no acute distress HEENT: head normocephalic/atraumatic with no bony deformities/step-offs of the skull PERRLA bilaterally. EOMI bilaterally with no nystagmus Neck: Supple, no lymphadenopathy, no midline tenderness Back: Normal inspection Cardiovascular: Regular rate and rhythm with no murmurs, rubs, or gallops Respiratory: Chest nontender. No respiratory distress. Breath sounds clear to auscultation bilaterally with no wheezes, rales, rhonchi Abdomen: Soft, nontender and nondistended Extremity: Normal and equal pulses. Neuro: Alert oriented x3, motor sensory normal, cranial nerves II through XII grossly intact. Skin: No appreciable rash on exposed skin, skin is warm and dry. Psych: Mood and affect is normal Core Measures ACS in differential dx? Yes CVA/TIA Diagnosis: No Severe Sepsis Present: No Septic Shock Present: No (JUAN BROWN,SILVIA) Progress Differential Diagnosis: arrythmia, alcohol intoxication, anemia, benign positional vertigo, CVA/stroke, dehydration, drug intoxication, encephalitis, electrolyte imbalance, hypoglycemia, hypoxia, intracranial Hem., intracranial mass/tumor, labrynthitis, meningitis, Meniere's disease, migraine MEJIAS, presyncope , seizure disorder, subarachnoid Hem., UTI/pyelo, vertebrobasilar insuff Diagnostic Imaging: Viewed by Me: Radiology Read, CT Scan. Discussed w/RAD: Radiology Read, CT Scan. Radiology Impression: PATIENT: RENEE BANDA PRESENT AGE: 81 PATIENT ACCOUNT NO: [id number] : 37 LOCATION: [facility] ORDERING PHYSICIAN: SILVIA MARTINEZ PA-C SERVICE DATE: 06/07/16-2020 EXAM TYPE: RAD - XRY-CHEST XRAY, PA AND LATERAL EXAMINATION: XR CHEST CLINICAL INFORMATION: Chest pain. . COMPARISON: Chest radiograph 03/18/2016. CT chest . TECHNIQUE: 2 views of the chest were obtained. FINDINGS: Lungs are clear and well expanded. There is no focal consolidative disease, pleural effusion, or pneumothorax. The cardiac silhouette and upper mediastinal contours are unremarkable. No acute osseous finding. Chronic changes of a median sternotomy are noted. IMPRESSION: Stable examination. No consolidative disease or effusion. DICTATED BY: WENCESLAO HUNG MD DATE/TIME DICTATED:06/07/162143 FUR TANNER:RAFI DATE/TIME TRANSCRIBED:06/07/162143 CONFIDENTIAL, DO NOT COPY WITHOUT APPROPRIATE AUTHORIZATION. <Electronically signed in Other Vendor System> SIGNED BY: WENCESLAO HUNG MD 06/07/162148, PATIENT: RENEE BANDA PRESENT AGE: 81 PATIENT ACCOUNT NO: [id number] : 37 LOCATION: [facility] ORDERING PHYSICIAN: SILVIA MARTINEZ PA-C SERVICE DATE: 06/07/16 EXAM TYPE: CAT - CT HEAD WO IV CONTRAST EXAMINATION: CT HEAD WITHOUT CONTRAST CLINICAL INFORMATION: Evaluate for intracranial hemorrhage or mass. COMPARISON: CT angiogram of the head 2014. TECHNIQUE: Contiguous axial imaging was performed from the skull base to vertex without intravenous administration of contrast. DLP: 529.16 mGy-cm FINDINGS: There are ill-defined foci of hypoattenuation within the periventricular white matter that most likely represent a chronic manifestation of small vessel ischemia, and are unchanged when compared to prior imaging. Broussard -white matter differentiation is otherwise preserved and there is no evidence of acute territorial infarct. There is no acute hemorrhage or abnormal extra axial collection. No intracranial mass effect or midline shift. Lateral and third ventricles are proportionate to the subarachnoid spaces. No hydrocephalus. The calvarium and skull base are intact. Mastoid air cells and middle ear cavities are well aerated. Visualized paranasal sinuses are well-aerated. IMPRESSION: Stable examination with chronic small vessel ischemic changes within the periventricular white matter. No evidence of acute territorial infarct or hemorrhage. DICTATED BY: WENCESLAO HUNG MD DATE/TIME DICTATED:06/07/162146 FUR TANNER:RAFI DATE/TIME TRANSCRIBED:06/07/162146 CONFIDENTIAL, DO NOT COPY WITHOUT APPROPRIATE AUTHORIZATION. <Electronically signed in Other Vendor System> SIGNED BY: WENCESLAO HUNG MD 06/07/162153 Initial ED EKG: normal axis, normal intervals, normal sinus rhythm, no ST T wave changes, 67 bpm (SILVIA MARTINEZ PA-C) Plan of Care: Orders Procedure Date/time Status Add-on Test (ER Only) 06/08 2207 Active LIPID PANEL 06/07 2018 Complete TROPONIN LEVEL 06/07 1908 Complete COMPREHENSIVE METABOLIC PANEL 06/07 1908 Complete CBC WITHOUT DIFFERENTIAL 06/07 1908 Complete EKG 06/07 1908 Active Laboratory Tests 06/07/16 2019: Anion Gap 14, Estimated GFR > 60, BUN/Creatinine Ratio 30.0 H, Glucose 127 H, Calcium 10.2, Total Bilirubin 0.6, AST 23, ALT 25, Alkaline Phosphatase 83, Troponin I < 0.01, Total Protein 8.0, Albumin 4.5, Globulin 3.5, Albumin/ Globulin Ratio 1.3, Triglycerides 223 H, Cholesterol 145, LDL Cholesterol, Calc 42 L, HDL Cholesterol 59, Cholesterol/HDL Ratio 2, CBC w Diff NO MAN DIFF REQ, RBC 4.39, MCV 94.5, MCH 31.4 H, RDW 13.0, MPV 9.7, Gran % 68.4, Lymphocytes % 21.0, Monocytes % 8.2, Eosinophils % 2.1, Basophils % 0.3, Absolute Granulocytes 5.3, Absolute Lymphocytes 1.6, Absolute Monocytes 0.6, Absolute Eosinophils 0.2, Absolute Basophils 0, PUBS MCHC 33.2 Departure Departure Disposition: HOME OR SELF CARE Condition: Stable Clinical Impression Primary Impression: Vertigo Referrals: PATIENT HAS NO PRIMARY CARE DR (PCP/Family) Additional Instructions: Remove this scopolamine patch and 48-72 hours. Rest and stay hydrated. Follow- up with your primary care physician. Return for any worsening symptoms or concerns. Departure Forms: Customer Survey General Discharge Information Prescriptions: Current Visit Scripts Ondansetron (Zofran Odt) 1 TAB SL TID PRN NAUSEA #10 TAB (SILVIA MARTINEZ PA-C) PA/WOOD FLOORING SPECIALIST Co-Sign Statement Statement: ED Attending supervision documentation- [] I saw and evaluated the patient. I have also reviewed all the pertinent lab results and diagnostic results. I agree with the findings and the plan of care as documented in the PA's/WOOD FLOORING SPECIALIST's documentation. [x] I have reviewed the ED Record and agree with the PA's/WOOD FLOORING SPECIALIST's documentation. [] Additions or exceptions (if any) to the PAs/WOOD FLOORING SPECIALIST's note and plan are summarized below: [] (PRISCILLA BANERJEE,DAQUAN Ko)
[2016-06-07 20:43] LABS: ABSOLUTE BASOPHIL COUNT 0 /CUMM (0.0-0.2); ABSOLUTE EOSINOPHIL COUNT 0.2 /CUMM (0.0-0.7); ABSOLUTE GRANULOCYTE CT 5.3 /CUMM (1.4-6.5); ABSOLUTE LYMPH COUNT 1.6 /CUMM (1.2-3.4); ABSOLUTE MONOCYTE COUNT 0.6 /CUMM (0.10-0.60); BASOPHIL % 0.3 % (0.0-2.0); EOSINOPHIL % 2.1 % (0-5); GRANULOCYTE % 68.4 % (42.2-75.2); HEMATOCRIT 41.5 % (37-47); MEAN CORPUSCULAR HGB 31.4 PG (27.0-31.0); MEAN CORPUSCULAR HGB CONC 33.2 G/DL (33.0-37.0); MEAN CORPUSCULAR VOLUME 94.5 FL (81.0-99.0); MEAN PLATELET VOLUME 9.7 FL (7.4-10.4); PLATELET COUNT 185 /CUMM (130-400); RED BLOOD CELL CT 4.39 /CUMM (4.20-5.40); WHITE BLOOD CELL COUNT 7.7 /CUMM (4.8-10.8)
--- NOTE | 2016-06-07 21:49 | RADIOLOGY REPORT ---
EXAMINATION: XR CHEST CLINICAL INFORMATION: Chest pain. . COMPARISON: Chest radiograph 03/18/2016. CT chest 09/05/2015. TECHNIQUE: 2 views of the chest were obtained. FINDINGS: Lungs are clear and well expanded. There is no focal consolidative disease, pleural effusion, or pneumothorax. The cardiac silhouette and upper mediastinal contours are unremarkable. No acute osseous finding. Chronic changes of a median sternotomy are noted. IMPRESSION: Stable examination. No consolidative disease or effusion.
--- NOTE | 2016-06-07 21:54 | CT SCAN REPORT ---
EXAMINATION: CT HEAD WITHOUT CONTRAST CLINICAL INFORMATION: Evaluate for intracranial hemorrhage or mass. COMPARISON: CT angiogram of the head 08/29/2014. TECHNIQUE: Contiguous axial imaging was performed from the skull base to vertex without intravenous administration of contrast. DLP: 529.16 mGy-cm FINDINGS: There are ill-defined foci of hypoattenuation within the periventricular white matter that most likely represent a chronic manifestation of small vessel ischemia, and are unchanged when compared to prior imaging. Broussard-white matter differentiation is otherwise preserved and there is no evidence of acute territorial infarct. There is no acute hemorrhage or abnormal extra axial collection. No intracranial mass effect or midline shift. Lateral and third ventricles are proportionate to the subarachnoid spaces. No hydrocephalus. The calvarium and skull base are intact. Mastoid air cells and middle ear cavities are well aerated. Visualized paranasal sinuses are well-aerated. IMPRESSION: Stable examination with chronic small vessel ischemic changes within the periventricular white matter. No evidence of acute territorial infarct or hemorrhage.
[2016-06-07 22:08] VITALS: BP 132/68
[2016-06-07] MEDS ORDERED: ZOFRAN ODT4 M1 SL (22:17)
== END 2016-06-07 22:27 ==
LOC: ERH 18:13
PROVIDERS: Pediatrics
DX: R42 Dizziness and giddiness (principal); R11.2 Nausea with vomiting, unspecified; I10 Essential (primary) hypertension; E78.5 Hyperlipidemia, unspecified
CPT/HCPCS: 93005; 93010; 96360; J7040